=== PATIENT | female | born 1985 | race Caucasian/White ===

== ENCOUNTER 2017-09-30 10:32 | Emergency (ER) | payer MEDICAID ==
[2016-02-18 11:57] VITALS: Ht 170.2 cm; Wt 65.3 kg
[~2017-09-30] VITALS: Ht 170.2 cm; Wt 65.3 kg
[~2017-09-30 10:32] MED LIST: AMO500 PO; AUG875 PO; BCP; BENZ200C38 PO; BIRTH CONTROL; BUSP10TA95 PO; BUSP15TA69 PO; CELE-1 PO; CEPH500C24 PO; CIP500 PO; CIT20 PO; CLO5 PO; CYC10 PO; DIA5 PO; DOCU-416 PO; ESC10 PO; ESCI20TA38 PO; FAM20 PO; FAMO20TA28 PO; FERR-1 PO; FERR325C2 PO; FLUO-202 PO; FLUT16SP19 ENA; FLUT16SP20 NS; FLUTR; GUALA600 PO; HYDR-385 PO; HYDR473S4 PO; HYOS0.1225 PO; IBU600 PO; IBU800 PO; IBUP800T37 PO; Ibuprofen PO; LOR5 PO; LOR5/325 PO; MET10 PO; METO-566 PO; METO-733 PO; METO-734 PO; METR70GE VG; NORG1TAB6 PO; NORG1TAB76 PO; OND4 PO; ONDA4TAB PO; ONDA4TAB97 PO; OXYC-373 PO; PAR20 PO; PARO-243 PO; PENI-22 PO; PER PO; PHEN120S18 PO; PNV-9 PO; PNV1TABL92 PO; PRE20 PO; PREN-129 PO; PREN-85 PO; PRO25 PO; PROM-110 PO; PROM25SU9 RC; TRAM-420 PO; TRAZ-133 PO; [UNRECOGNIZED DRUG - REMARK]
--- NOTE | 2017-09-30 10:33 | ER Report ---
History and Physical Time Seen By MD: 10:32 Allergies: Coded Allergies: No Known Allergies (Verified Allergy, Mild, 09/30/17) Home Meds Reported Medications Albuterol Sulfate (VENTOLIN HFA) 18 Gm Inh, 1-2 PUFF INH 3-4XD, INH 09/30/17 Azithromycin (ZITHROMAX TRI-INEZ) 500 Mg Tablet, 500 MG PO 09/30/17 Benzonatate 100 Mg Cap (TESSALON PERLE 100 MG CAP) 100 Mg Capsule, 100 MG PO TID , #15 CAP 09/30/17 Cephalexin Monohydrate (CEPHALEXIN) 500 Mg Cap, 500 MG PO Q6H, CAP 05/30/17 Fluoxetine Hcl (PROZAC) 20 Mg Capsule, 20 MG PO QDAY, CAPSULE 02/07/17 Fluticasone Prop 50 Mcg Ns (FLONASE 50 MCG NS) 16 Gm [place].susp, 1 SPRAY SAM BID , BOT 11/13/15 Hx Smoking: Yes (SOCIALLY ) Smoking Status: Former Smoker, Light Tobacco Smoker Exposure to Second Hand Smoke?: No Hx Substance Use Disorder: No Hx Alcohol Use: No Constitutional Vital Sign - Last 24 Hours 09/30/17 10:39 Pulse 85 Resp 20 B/P (MAP) 102/58 Pulse Ox 98 O2 Delivery Room Air Depart Departure Latest Vital Signs Vital Signs Date Time Temp Pulse Resp B/P (MAP) Pulse Ox O2 Delivery O2 Flow Rate FiO2 09/30/17 10:39 85 20 102/58 98 Room Air Referrals: NATALIE CHÁVEZ MD (PCP) CINDY NARANJO MD Sep 30, 2017 10:33
[2017-09-30] MEDS ORDERED: AZIT500T45 PO (10:45)
[2017-09-30] MEDS ORDERED: ALB18R INH (10:45)
[2017-09-30] MEDS ORDERED: BENZ100C4 PO (10:45)
--- NOTE | 2017-09-30 11:02 | ER Report ---
History and Physical Time Seen By MD: 11:01 Hx. of Stated Complaint: PT. HERE FOR COUGH AND HOARSE VOICE SINCE BEFORE [place]. STATES SHE HAS BEEN ON A ZPACK AND USING AN INHALER. HPI/ROS CHIEF COMPLAINT: Cough, shortness of breath HISTORY OF PRESENT ILLNESS: 32-year-old female patient presents to emergency room with complaint of cough and shortness of breath. Patient states this been going on for the past week. She states that she's not had any sinus congestion but has noted a small amount of drainage. Patient states she is used a albuterol nebulizer which seems to have helped. She denies having any fevers, chills, nausea, vomiting or diarrhea. Patient was seen at an urgent care and was started on azithromycin. Patient states that was 3 days ago and has not noticed any improvement since then. Allergies: Coded Allergies: No Known Allergies (Verified Allergy, Mild, 09/30/17) Home Meds Active Scripts Prednisone (PREDNISONE) 20 Mg Tablet, 20 MG PO BID, #10 TAB Prov:TIFFANIE BENITEZ MOLD ENGRAVER 09/30/17 Reported Medications Albuterol Sulfate (VENTOLIN HFA) 18 Gm Inh, 1-2 PUFF INH 3-4XD, INH 09/30/17 Azithromycin (ZITHROMAX TRI-INEZ) 500 Mg Tablet, 500 MG PO 09/30/17 Benzonatate 100 Mg Cap (TESSALON PERLE 100 MG CAP) 100 Mg Capsule, 100 MG PO TID , #15 CAP 09/30/17 Cephalexin Monohydrate (CEPHALEXIN) 500 Mg Cap, 500 MG PO Q6H, CAP 05/30/17 Fluoxetine Hcl (PROZAC) 20 Mg Capsule, 20 MG PO QDAY, CAPSULE 02/07/17 Fluticasone Prop 50 Mcg Ns (FLONASE 50 MCG NS) 16 Gm [place].susp, 1 SPRAY SAM BID , BOT 11/13/15 Past Medical/Surgical History Patient has a past medical history of frequent UTIs, alopecia, anxiety, depression. Patient has surgical history of hysterectomy, tubal ligation, left meniscus repair, wisdom teeth removed. Patient has a family medical history of diabetes, cancer. Reviewed Nurses Notes: Yes Hx Smoking: Yes (SOCIALLY ) Smoking Status: Former Smoker, Light Tobacco Smoker Exposure to Second Hand Smoke?: No Hx Substance Use Disorder: No Hx Alcohol Use: No Constitutional Vital Sign - Last 24 Hours 09/30/17 09/30/17 10:39 12:07 Temp 98.0 Pulse 85 77 Resp 20 B/P (MAP) 102/58 101/68 (79) Pulse Ox 98 95 O2 Delivery Room Air Room Air Physical Exam General Appearance: The patient is alert, has no immediate need for airway protection and no current signs of toxicity. ENT: Tympanic membranes are pearly-[place], auditory canals are patent, mucus mucous membranes are moist. Respiratory: Chest is non tender, lungs are clear to auscultation. Cardiac: regular rate and rhythm Gastrointestinal: Abdomen is soft and non tender, no masses, bowel sounds normal. Musculoskeletal: Neck: Neck is supple and non tender. Extremities have full range of motion and are non tender. Skin: No rashes or lesions. DIFFERENTIAL DIAGNOSIS: After history and physical exam differential diagnosis was considered for upper respiratory infection, pneumonia, bronchitis, sinusitis. Medical Decision Making Data Points Result Diagram: 09/30/17 1110 09/30/17 1110 Laboratory Hematology Test 09/30/17 11:10 Red Blood Count 4.96 M/uL (4.17-5.56) Mean Corpuscular Volume 89.3 fL (80.0-96.0) Mean Corpuscular Hemoglobin 30.5 pg (26.0-33.0) Mean Corpuscular Hemoglobin Concent 34.1 g/dL (32.0-36.0) Red Cell Distribution Width 12.4 % (11.5-14.5) Mean Platelet Volume 9.1 fL (7.2-11.1) Neutrophils (%) (Auto) 55.6 % (39.4-72.5) Lymphocytes (%) (Auto) 34.4 % (17.6-49.6) Monocytes (%) (Auto) 6.0 % (4.1-12.4) Eosinophils (%) (Auto) 2.7 % (0.4-6.7) Basophils (%) (Auto) 1.3 % (0.3-1.4) Nucleated RBC Relative Count (auto) 0.0 /100WBC Neutrophils # (Auto) 3.5 K/uL (2.0-7.4) Lymphocytes # (Auto) 2.2 K/uL (1.3-3.6) Monocytes # (Auto) 0.4 K/uL (0.3-1.0) Eosinophils # (Auto) 0.2 K/uL (0.0-0.5) Basophils # (Auto) 0.1 K/uL (0.0-0.1) Nucleated RBC Absolute Count (auto) 0.00 K/uL Sodium Level 139 mmol/L (137-145) Potassium Level 4.1 mmol/L (3.5-5.0) Chloride Level 103 mmol/L (98-107) Carbon Dioxide Level 29 mmol/L (22-31) Blood Urea Nitrogen 13 mg/dl (7-18) Creatinine 0.80 mg/dl (0.52-1.04) Glomerular Filtration Rate Calc > 60.0 Random Glucose 66 mg/dl (75-110) Calcium Level 9.4 mg/dl (8.4-10.2) Total Bilirubin 0.5 mg/dl (0.2-1.3) Aspartate Amino Transf (AST/SGOT) 23 U/L (0-35) Alanine Aminotransferase (ALT/SGPT) 29 U/L (0-56) Alkaline Phosphatase 60 U/L (0-126) Total Protein 6.6 gm/dl (6.3-8.2) Albumin 3.5 g/dl (3.5-5.0) Chemistry Test 09/30/17 11:10 White Blood Count 6.3 k/uL (4.5-11.0) Red Blood Count 4.96 M/uL (4.17-5.56) Hemoglobin 15.1 g/dL (12.0-16.0) Hematocrit 44.3 % (34.0-47.0) Mean Corpuscular Volume 89.3 fL (80.0-96.0) Mean Corpuscular Hemoglobin 30.5 pg (26.0-33.0) Mean Corpuscular Hemoglobin Concent 34.1 g/dL (32.0-36.0) Red Cell Distribution Width 12.4 % (11.5-14.5) Platelet Count 268 K/uL (150-450) Mean Platelet Volume 9.1 fL (7.2-11.1) Neutrophils (%) (Auto) 55.6 % (39.4-72.5) Lymphocytes (%) (Auto) 34.4 % (17.6-49.6) Monocytes (%) (Auto) 6.0 % (4.1-12.4) Eosinophils (%) (Auto) 2.7 % (0.4-6.7) Basophils (%) (Auto) 1.3 % (0.3-1.4) Nucleated RBC Relative Count (auto) 0.0 /100WBC Neutrophils # (Auto) 3.5 K/uL (2.0-7.4) Lymphocytes # (Auto) 2.2 K/uL (1.3-3.6) Monocytes # (Auto) 0.4 K/uL (0.3-1.0) Eosinophils # (Auto) 0.2 K/uL (0.0-0.5) Basophils # (Auto) 0.1 K/uL (0.0-0.1) Nucleated RBC Absolute Count (auto) 0.00 K/uL Glomerular Filtration Rate Calc > 60.0 Calcium Level 9.4 mg/dl (8.4-10.2) Total Bilirubin 0.5 mg/dl (0.2-1.3) Aspartate Amino Transf (AST/SGOT) 23 U/L (0-35) Alanine Aminotransferase (ALT/SGPT) 29 U/L (0-56) Alkaline Phosphatase 60 U/L (0-126) Total Protein 6.6 gm/dl (6.3-8.2) Albumin 3.5 g/dl (3.5-5.0) EKG/Imaging Imaging CHEST PA AND LAT COMPARISON: None. HISTORY: cough, SOB FINDINGS: CARDIAC/VASC: No cardiac silhouette abnormality or cardiomegaly. Unremarkable pulmonary vasculature. MEDIASTINUM: No visible mass or adenopathy. LUNGS/PLEURA: No pneumothorax. No significant pulmonary parenchymal abnormalities. No effusion or pleural thickening. BONES: No fracture or visible bony lesion. OTHER:Negative. IMPRESSION: No acute cardiopulmonary process. Report Dictated By: Juan Castelan at 09/30/2017 11:35 AM Report E-Signed By: Juan Castelan at 09/30/2017 11:40 AM ED Course/Re-evaluation ED Course Patient was admitted to exam room, history and physical were obtained. Differential diagnoses were considered. On examination lungs are clear, heart is regular. Patient does have a hoarse voice. A CBC, CMP, chest x-ray were done. The lab results were unremarkable, chest x-ray was also unremarkable. I discussed findings with patient. I believe are likely looking at upper respiratory infection. We will go ahead and place her on a steroid for 5 days. I would like her to go ahead and continue taking the azithromycin as directed. She is to return to emergency room if condition worsens. She is follow-up with her primary care provider in the next week. Patient verbalized understanding and agreement. Decision to Disposition Date: Sep 30, 2017 Decision to Disposition Time: 11:55 Depart Departure Latest Vital Signs Vital Signs Date Time Temp Pulse Resp B/P (MAP) Pulse Ox O2 Delivery O2 Flow Rate FiO2 09/30/17 12:07 77 101/68 (79) 95 Room Air 09/30/17 10:39 98.0 20 Impression: Primary Impression: Acute bronchitis Condition: Improved Disposition: HOME OR SELF-CARE Referrals: NATALIE CHÁVEZ MD (PCP) New Scripts Prednisone (PREDNISONE) 20 Mg Tablet 20 MG PO BID, #10 TAB Prov: TIFFANIE BENITEZ 09/30/17 Patient Instructions: Acute Bronchitis (ED) Additional Instructions: Increase fluid intake. Get plenty of rest. Follow up with your primary care provider in the next 1-2 weeks. Continue with current medications. Return to the ER if condition worsens. Problem Qualifiers Primary Impression: Acute bronchitis Bronchitis organism: unspecified organism Qualified Codes: J20.9 - Acute bronchitis, unspecified TIFFANIE BENITEZ Sep 30, 2017 11:02
[2017-09-30 11:24] LABS: PLATELET COUNT, AUTOMATED 268 K/uL (150-450)
--- NOTE | 2017-09-30 11:44 | RADIOLOGY IMAGING REPORT ---
[facility] PATIENT NAME: Ping Morrison : 1985 MR: [id number] V: [id number] EXAM DATE: ORDERING PHYSICIAN: TIFFANIE BENITEZ TECHNOLOGIST: Location: [facility] - [place] Patient: Ping Morrison : 1985 Visit/Account:[id number] Date of Sevice: 09/30/2017 CHEST PA AND LAT COMPARISON: None. HISTORY: cough, SOB FINDINGS: CARDIAC/VASC: No cardiac silhouette abnormality or cardiomegaly. Unremarkable pulmonary vasculatu re. MEDIASTINUM: No visible mass or adenopathy. LUNGS/PLEURA: No pneumothorax. No significant pulmonary parenchymal abnormalities. No effusion or p leural thickening. BONES: No fracture or visible bony lesion. OTHER:Negative. IMPRESSION: No acute cardiopulmonary process. Report Dictated By: Juan Castelan at 09/30/2017 11:35 AM Report E-Signed By: Juan Castelan at 09/30/2017 11:40 AM WSN:[id number]
[2017-09-30] MEDS ORDERED: PRED20TA6 PO (11:57)
[2017-09-30 12:07] VITALS: BP 101/68
== END 2017-09-30 12:11 | disposition home or self-care (01) ==
LOC: ER 10:32
DX: J20.9 Acute bronchitis, unspecified (principal)
CPT/HCPCS: 71046; 82040; 82247; 82310; 82374; 82435; 82565; 82947; 84075; 84132; 84155; 84295; 84450; 84460; 84520; 85025; 99282

== ENCOUNTER → 2017-12-01 | Outpatient (CLI) | payer MEDICAID ==
[2016-02-18 11:57] VITALS: BMI 22.3
[~2017-12-01] MED LIST changes: +ALB18R INH; +AZIT500T45 PO; +BENZ100C4 PO; +METH4TAB66 PO; +OMEP-137 PO; +PRED20TA6 PO
--- NOTE | 2017-12-01 17:42 | RADIOLOGY IMAGING REPORT ---
FACILITY[place] [facility] [place] PATIENT NAME: Ping Morrison : 1985 MR: [id number] V: [id number] EXAM DATE: ORDERING PHYSICIAN: RODRÍGUEZ SUGGS TECHNOLOGIST: Location: [facility] [place] Patient: Ping Morrison : 1985 Visit/Account:[id number] Date of Sevice: 12/01/2017 HIP RIGHT Indication: Hip pain. Comparison: None available Findings: There is no acute fracture or dislocation of the right hip. No significant degenerative changes identified. The pelvis is intact. IMPRESSION: 1. Negative right hip and pelvis Report Dictated By: Ravi Mckeon at 12/01/2017 5:37 PM Report E-Signed By: Ravi Mckeon at 12/01/2017 5:38 PM WSN:[id number]
== END ==
LOC: RAD 16:37
PROVIDERS: ATTEND Nurse Practitioner Primary Care
DX: M25.551 Pain in right hip (principal)

== ENCOUNTER → 2018-01-09 | Outpatient (CLI) | payer MEDICAID ==
[2016-02-18 11:57] VITALS: BMI 22.3
[~2018-01-09] MED LIST changes: +DICL100G39 TOP
== END ==
LOC: LAB 11:21
PROVIDERS: ATTEND Nurse Practitioner Family
DX: Z01.419 Encounter for gynecological examination (general) (routine) without abnormal findings (principal); F41.9 Anxiety disorder, unspecified; Z82.49 Family history of ischemic heart disease and other diseases of the circulatory system; R03.0 Elevated blood-pressure reading, without diagnosis of hypertension
CPT/HCPCS: 36415; 82465; 83718; 84443; 84478

== ENCOUNTER 2018-03-30 19:06 | Emergency (ER) | payer MEDICAID ==
[2016-02-18 11:57] VITALS: Wt 68.0 kg
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
--- NOTE | 2018-03-30 20:11 | RADIOLOGY IMAGING REPORT ---
FACILITY: [facility] PATIENT NAME: Ping Morrison : 1985 MR: [id number] V: [id number] EXAM DATE: ORDERING PHYSICIAN: BART LEES TECHNOLOGIST: Location: [facility] - [place] Patient: Ping Morrison : 1985 Visit/Account:[id number] Date of Sevice: 03/30/2018 INDICATION: injury, pain to snuff box. DATE: 03/30/2018 8:04 PM. TECHNIQUE: WRIST RIGHT MIN 3 VIEW, HAND COMPLETE RIGHT COMPARISON: None FINDINGS: Right wrist: Carpal alignment is normal. There is no evidence of fracture or dislocation at the wrist . Right hand: Mild apex dorsal angulation of the fifth metacarpal with a transverse fracture of the mid shaft. IMPRESSION: Transverse fracture of the fifth metacarpal shaft with mild apex dorsal angulation. Report Dictated By: Christian Fisher MD at 03/30/2018 8:04 PM Report E-Signed By: Christian Fisher MD at 03/30/2018 8:07 PM WSN:[id number]
--- NOTE | 2018-03-30 20:12 | RADIOLOGY IMAGING REPORT ---
FACILITY: [facility] [place] PATIENT NAME: Ping Morrison : 1985 MR: [id number] V: [id number] EXAM DATE: ORDERING PHYSICIAN: BART LEES TECHNOLOGIST: Location: [facility] Patient: Ping Morrison : 1985 Visit/Account:[id number] Date of Sevice: 03/30/2018 INDICATION: injury, pain to snuff box. DATE: 03/30/2018 8:04 PM. TECHNIQUE: WRIST RIGHT MIN 3 VIEW, HAND COMPLETE RIGHT COMPARISON: None FINDINGS: Right wrist: Carpal alignment is normal. There is no evidence of fracture or dislocation at the wrist . Right hand: Mild apex dorsal angulation of the fifth metacarpal with a transverse fracture of the mid shaft. IMPRESSION: Transverse fracture of the fifth metacarpal shaft with mild apex dorsal angulation. Report Dictated By: Christian Fisher MD at 03/30/2018 8:04 PM Report E-Signed By: Christian Fisher MD at 03/30/2018 8:07 PM WSN:[id number]
[2018-03-30 20:38] VITALS: BP 137/85
[2018-03-30] MEDS ORDERED: traMADol 50 MG TAB TH 2 TAB/BOTTLE PO ONE (20:40)
[2018-04-02] MEDS ORDERED: DICL25TA9 PO (16:07)
== END 2018-03-30 20:43 | disposition home or self-care (01) ==
LOC: ER 19:16
DX: S62.356A Nondisplaced fracture of shaft of fifth metacarpal bone, right hand, initial encounter for closed fracture (principal); W23.0XXA Caught, crushed, jammed, or pinched between moving objects, initial encounter
CPT/HCPCS: 73110; 73130; 99283; C9399; L3763

== ENCOUNTER → 2018-04-10 | Outpatient (CLI) | payer MEDICAID ==
[2016-02-18 11:57] VITALS: BMI 22.3
[~2018-04-10] MED LIST changes: +DICL25TA9 PO; +FLUO40CA76 PO; +METR-160 PO
== END ==
LOC: LAB 10:15
PROVIDERS: ATTEND Nurse Practitioner Family
DX: N89.8 Other specified noninflammatory disorders of vagina (principal)
CPT/HCPCS: 87210; 87491; 87591